=== PATIENT | male | born 1990 | race Caucasian/White ===

== ENCOUNTER 2019-11-28 04:24 | Emergency (ER) | payer SELFPAY ==
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
[2019-11-28] MEDS ORDERED: Ibuprofen 600 MG Tab PO ONE (05:29)
--- NOTE | 2019-11-28 07:09 | CR ---
Left forearm: Two views of the left forearm were obtained. Comparison: No prior forearm study. No fracture or other bony abnormality is appreciated. Impression: 1. No abnormality is identified on two-view left forearm exam. Diagnostic code #1 This report was dictated in [place] Standard Time
== END 2019-11-28 05:52 | disposition home or self-care (01) ==
LOC: JD.ED 04:24
DX: S50.12XA Contusion of left forearm, initial encounter (principal); F17.210 Nicotine dependence, cigarettes, uncomplicated; Y04.2XXA Assault by strike against or bumped into by another person, initial encounter
CPT/HCPCS: 73090; 99283; A9270; 99282

== ENCOUNTER 2020-12-12 20:25 | Emergency (ER) | payer MEDICAID ==
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
[2020-12-12] MEDS ORDERED: fentaNYL 2500 MCG/50 ML SDV ONE (21:01)
[2020-12-12] MEDS ORDERED: Sodium Chloride 0.9% 250 ML ONE (21:02)
--- NOTE | 2020-12-12 21:16 | CR ---
Chest: Portable supine view of the chest was obtained. Comparison: No prior chest imaging is available. Endotracheal tube is seen with tip lying at the lower level of the clavicles. Lungs are clear with no acute parenchymal change. Bony structures show an old healed left clavicle fracture. Heart size and mediastinum are normal. Impression: 1. Endotracheal tube at the lower level of the clavicles. 2. Nothing acute is otherwise seen on portable supine chest x-ray. Diagnostic code #2
[2020-12-12] MEDS ORDERED: fentaNYL 2,500 MCG in Sodium Chloride 0.9% 200 ML IV SCH (21:30)
--- NOTE | 2020-12-12 21:30 | CT ---
CT cervical spine Technique: Multiple axial sections were obtained from above C1 inferiorly to the bottom of T3. Reconstructed coronal and sagittal images were obtained. Comparison: No prior study. Findings: Significant motion artifact is present. No bony central or bony neural foraminal stenosis is seen. Endotracheal tube is seen with the inferior portion of the tube not seen on the study. Visualized lung apices show nothing acute. No gross fracture is appreciated. No definite abnormal subluxation is seen. Impression: 1. Significant motion artifact. 2. No gross acute abnormality is appreciated. Diagnostic code #2
--- NOTE | 2020-12-12 21:30 | CT ---
Head CT Technique: Multiple axial sections were obtained to the brain. Intravenous contrast was not utilized. Reconstructed coronal and sagittal images were obtained. Findings: Motion artifact is seen. Ventricles as well as basal cisterns and sulci over the convexities are within normal limits. No definite intracranial hemorrhage is appreciated. No midline shift or mass-effect is appreciated. Bone window settings were reviewed. Probable nasal bone fracture is present. Mucosal thickening is seen within the ethmoid sinuses. Small amount of fluid is seen within the right maxillary sinus. Impression: 1. Motion artifact. 2. No definite evidence of intracranial hemorrhage or other acute abnormality. 3. Findings of nasal bone fracture with paranasal sinus findings as noted above. Diagnostic code #3
[2020-12-12] MEDS ORDERED: Midazolam 1 MG/ML 5 ML SDV IVPUSH ONE (21:31)
[2020-12-12] MEDS ORDERED: Etomidate 2 MG/ML 20 ML SDV IVPUSH ONE (21:41)
== END 2020-12-12 21:45 ==
LOC: JD.ED 20:25
DX: T71.161A Asphyxiation due to hanging, accidental, initial encounter (principal); F15.10 Other stimulant abuse, uncomplicated; E87.2 Acidosis; R74.01 Elevation of levels of liver transaminase levels; N28.9 Disorder of kidney and ureter, unspecified; E11.65 Type 2 diabetes mellitus with hyperglycemia; R00.0 Tachycardia, unspecified; Z72.0 Tobacco use; Z20.822 Contact with and (suspected) exposure to COVID-19
CPT/HCPCS: 31500; 36415; 43752; 70450; 71045; 72125; 80053; 80306; 80307; 83605; 83735; 85025; 85610; 85730; 87635; 93005; 99291; J2250; J3010; J3490; 93010; 99285; U0002